=== PATIENT | male | born 2000 | race Caucasian/White ===

== ENCOUNTER 2021-05-12 10:30 | Emergency (ER) | payer MEDICAID ==
[~2021-05-12] VITALS: Ht 175.3 cm; Wt 67.1 kg
[2021-05-12 10:53] LABS: ABSOLUTE EOSINOPHILS 0.1 thou/uL (0.0-0.7); ABSOLUTE LYMPHOCYTES 2.1 thou/uL (0.8-5.3); ABSOLUTE MONOCYTES 0.9 thou/uL (0.0-1.2); BASOPHILS 0.6 %; EOSINOPHILS 1.3 %; HEMATOCRIT 45.4 % (42.0-52.0); HEMOGLOBIN 15.7 gm/dL (14.0-18.0); MCH 29.9 pg (26.0-34.0); MCHC 34.5 g/dL (28.0-37.0); MCV 86.7 fL (80.0-100.0); MONOCYTES 13.2 %; MPV 7.3 fl. (7.2-11.1); NUCLEATED RBCS 0 /100WBC; PLATELET COUNT* 292 thou/uL (150-400); POLYS 55.9 %; RBC 5.24 mil/uL (4.50-6.00); RDW-CV 13.3 % (10.5-14.5); WBC 7.1 thou/uL (4.0-11.0)
[2021-05-12 11:06] LABS: CALCIUM 8.8 mg/dL (8.5-10.1); POTASSIUM 3.7 mmol/L (3.5-5.1)
[2021-05-12 11:10] LABS: ALBUMIN 4.4 g/dL (3.4-5.0); TOTAL BILIRUBIN 0.4 mg/dL (<0.1-1.0)
[2021-05-12 11:56] VITALS: BP 124/72
--- NOTE | 2021-05-12 12:39 | EKG ---
[place] [address] ELECTROCARDIOGRAM REPORT Name: VANNESA MEDINA Room: [facility]#: [id number] Admission: 05/12/21 Attend Phys: Discharge: 05/12/21 Date of : 2 Date of Service: 05/12/21 1035 Report #: [id number] THIS REPORT FOR: //name// [facility] ED Test Date: 2021-05-12 Test Time: 10:35:46 Pat Name: VANNESA MEDINA Department: Room: Gender: Sales Utility Representative: [place] : 2000 Requested By: Ena Juarez Order Number: [id number] MD: Supa Barbour Measurements Intervals [place] Rate: 58 P: 34 OR: 121 QRS: 69 QRSD: 77 T: 58 QT: 399 QTc: 392 Interpretive Statements Sinus rhythm ST elev, probable normal early repol pattern No previous ECG available for comparison Electronically Signed On 05-12-2021 12:39:28 CDT by Supa Barbour [email or web address] <ELECTRONICALLY SIGNED> By: Supa Barbour MD, [facility] 05/12/21 1239 1035 1035 Supa Barbour MD, [facility] /EPI
== END 2021-05-12 11:57 | disposition home or self-care (01) ==
LOC: M.ERS 10:30
PROVIDERS: Physician Assistant
DX: R07.89 Other chest pain (principal); R10.32 Left lower quadrant pain; R00.2 Palpitations; R42 Dizziness and giddiness; R06.02 Shortness of breath; R51.9 Headache, unspecified; R00.0 Tachycardia, unspecified